=== PATIENT | female | born 1950 | race Caucasian/White ===

== ENCOUNTER 2018-06-04 22:11 | Emergency (ER) | payer MEDICARE, OTHER ==
[2018-06-05] MEDS: KETOROLAC 30 MG INJ IM (01:35)
== END 2018-06-05 02:55 | disposition home or self-care (01) ==
LOC: FTE 22:11
DX: R51 Headache (principal); I10 Essential (primary) hypertension; Z85.3 Personal history of malignant neoplasm of breast
CPT/HCPCS: 96372; 99284-25